=== PATIENT | male | born 1980 | race Two or more races ===

== ENCOUNTER 2019-08-15 04:18 | Inpatient (IN) | payer OTHER ==
[~2019-08-15] VITALS: Ht 190.5 cm; Wt 83.5 kg
--- NOTE | 2019-08-15 04:35 | NUR ---
[id number]. C/O VOMMITING X 2, ONE EPISODE W/ RED RED BLOOD. 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 TO ER BED 4 AWAITING MED EVAL
[2019-08-15] MEDS ORDERED: PANTOPRAZOLE 40 MG VIAL IV ONE (05:00)
[2019-08-15] MEDS ORDERED: IV NS 0.9% 1,000 ML BAG IV ONE ×2 (05:00→06:30)
[2019-08-15] MEDS ORDERED: ONDANSETRON HCL/PF 4 MG/2 ML VIAL IVP ONE (05:00)
[2019-08-15 05:15] LABS: APPEARANCE,URINE Clear (CLEAR); BILIRUBIN,URINE SMALL (NEGATIVE); BLOOD, URINE Trace-intact Ery/uL (NEGATIVE); COLOR,URINE Yellow (YELLOW); KETONES,URINE 80 (NEGATIVE); LEUKOCYTE ESTERASE ,URINE Negative (NEGATIVE); NITRITE, URINE Negative (NEGATIVE); PH,URINE 7.5 (5.0-8.0); PROTEIN,URINE Trace mg/dl (NEGATIVE); UGLUCOSE Negative (NEGATIVE)
[2019-08-15 05:18] LABS: CALCIUM, SERUM 8.7 mg/dL (8.5-10.1); CARBON DIOXIDE 20 mmol/L (21-32); CHLORIDE 106 mmol/L (98-107); CREATININE 0.9 mg/dL (0.6-1.3); GLUCOSE 128 mg/dL (74-106); POTASSIUM 3.7 mmol/L (3.5-5.1); SODIUM SERUM 140 mmol/L (136-145); UREA NITROGEN, BLOOD 14 mg/dL (7-18)
[2019-08-15 05:26] LABS: ABG OXYGEN SATURATION 89.6 % (92.0-98.5); ABG PCO2 19.5 mmHg (35.0-45.0); ABG PH 7.571 (7.350-7.450); AaDO2 123.6 mmHg; COHb 0.2 % (0.5-1.5); MetHb 0.4 % (0.0-1.5); O2Hb 89.1 % (94.0-97.0); SITE, ABG Right Radial; VENT MODE, BG NC 2L
[2019-08-15] MEDS ORDERED: IOHEXOL-350 100 ML VIAL IV ONE (05:28)
[2019-08-15] MEDS ORDERED: CT SWABBABLE VALVE TRANS SET 1 EA INFUS.SET MC ONE (05:29)
[2019-08-15] MEDS ORDERED: IV NS 0.9% 250 ML IV ONE (05:29)
--- NOTE | 2019-08-15 05:29 | NUR ---
lactic acid 2.4
[2019-08-15 05:31] LABS: ALANINE AMINOTRANSFERASE 35 U/L (12-78); ALBUMIN 3.6 g/dL (3.4-5.0); ALKALINE PHOSPHATASE 140 U/L (46-116); ASPARTATE AMINOTRANSFERASE 42 U/L (15-37); B-TYPE NATRIURETIC PEPTIDE 23 PG/ML (0-125); BILIRUBIN,DIRECT 0.5 mg/dL (0.0-0.2); BILIRUBIN,TOTAL 2.1 mg/dL (0.2-1.0); LIPASE 136 U/L (73-393); SERUM AMMONIA 35 umol/L (11-32); TOTAL PROTEIN, SERUM 7.5 g/dL (6.4-8.2)
[2019-08-15 05:39] LABS: BACTERIA,URINE Few /HPF (None Seen); MUCUS,URINE Few /LPF (None Seen); SQUAMOUS EPITHELIAL CELL,UR Few /HPF (None Seen)
[2019-08-15 05:43] LABS: D-DIMER 0.53 mg/L(FEU (0.17-0.50)
--- NOTE | 2019-08-15 05:49 | NUR ---
PT TAKEN TO RADIOLOGY
[2019-08-15 05:50] LABS: BASOPHILS % (AUTO) 0.3 % (0.0-2.0); EOSINOPHILS % (AUTO) 0.9 % (0.0-6.0); HEMATOCRIT 57 % (39-51); LYMPHOCYTES # (AUTO) 0.5 /CMM (0.8-4.8); LYMPHOCYTES % (AUTO) 7.6 % (20.0-44.0); MEAN CORPUSCULAR HGB CONC 34 g/dl (31.0-36.0); MEAN CORPUSCULAR VOLUME 103 fL (80-96); MONOCYTES # (AUTO) 0.3 /CMM (0.1-1.30); MONOCYTES % (AUTO) 4.6 % (2.0-12.0); NEUTROPHILS # (AUTO) 5.7 /CMM (1.8-8.9); NEUTROPHILS % (AUTO) 86.6 % (43.0-81.0); PLATELET COUNT (AUTO) 58 /CMM (150-450); RED BLOOD CELL COUNT(AUTO) 5.51 MIL/uL (4.5-6.0); WHITE BLOOD COUNT (AUTO) 6.6 K/uL (4.3-11.0)
[2019-08-15 05:52] LABS: HEMOGLOBIN 19.4 g/dL (13.5-17.5)
[2019-08-15 05:58] LABS: LYMPHOCYTES % (MANUAL) 4 % (16-48); MONOCYTES % (MANUAL) 3 % (0-11.0); NEUTROPHILS % (MANUAL) 93 (42-76)
--- NOTE | 2019-08-15 06:04 | NUR ---
CALLED SUP FOR [facility] BED
[2019-08-15] MEDS ORDERED: PIPERACILLIN /TAZOBACTAM 3.375 G in IV D5W 50 ML IV ONE (06:30)
[2019-08-15] MEDS ORDERED: PIPERACILLIN /TAZOBACTAM 3.375 G VIAL IV ONE (06:34)
--- NOTE | 2019-08-15 06:42 | NUR ---
CALLED IN REPORT TO [facility] CHARGE NURSE CHACORTA
--- NOTE | 2019-08-15 06:48 | NUR ---
PAGED DR. LANGLEY
[2019-08-15 08:00] VITALS: BP 100/66
--- NOTE | 2019-08-15 08:28 | NUR ---
PATIENT ACCEPTED BY [facility], DOWNGRADED TO TELE. PATIENT TRANSFERRED TO ROOM 116-2 VIA ACLS PROTOCOL. NO DISTRESS NOTED. AMBULATORY WITH STEADY GAIT.
[2019-08-15 08:52] VITALS: BP 100/66
--- NOTE | 2019-08-15 09:27 | NUR ---
[facility] RN Notes Received patient from emergency room. Initial admission assessment conducted. Patient is in bed comfortable and resting. VSS BP 100/66 HR 76 T-98.3 O2 96 RR18, NSR. Will continue to monitor for s/s of bleeding and any changes of condition. 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
[2019-08-15] MEDS ORDERED: HYDROCODONE/APAP 5/325MG 1 EACH TABLET PO PRN (10:30)
[2019-08-15] MEDS ORDERED: ONDANSETRON HCL/PF 4 MG/2 ML VIAL IVP PRN (10:30)
[2019-08-15] MEDS ORDERED: MORPHINE SULFATE INJ 2 MG/ML DISP.SYRIN IV PRN (10:30)
[2019-08-15] MEDS ORDERED: ZOLPIDEM TARTRATE 5 MG TABLET PO PRN (10:30)
[2019-08-15] MEDS ORDERED: ACETAMINOPHEN 325 MG TABLET PO PRN (10:30)
[2019-08-15] MEDS ORDERED: PANTOPRAZOLE 40 MG VIAL IV SCH (10:30)
[2019-08-15] MEDS ORDERED: MAGNESIUM HYDROXIDE 30 ML UDC PO PRN (10:30)
[2019-08-15] MEDS ORDERED: MAG HYDROX/AL HYDROX/SIMETH 30 ML UDC PO PRN (10:30)
--- NOTE | 2019-08-15 10:38 | NUR ---
[facility] RN Notes Per INVENTORY CONTROLLER rajani Chino to have ice chips. Will continue to monitor.
--- NOTE | 2019-08-15 10:54 | NUR ---
M[facility] RN Notes Patient just seen by respiratory therapy. ABG drawn off O2. Patient reconnected to nasal canula 2L. O2 Reassessed at 92%. Will continue to monitor for s/s of SOB and respiratory distress.
[2019-08-15 11:01] LABS: ABG BASE EXCESS -2.8 mmol/L; ABG PCO2 25.4 mmHg (35.0-45.0); ABG PH 7.476 (7.350-7.450); ABG PO2 52.9 mmHg (75.0-100.0); AaDO2 66.4 mmHg; COHb 0.5 % (0.5-1.5); MetHb 0.7 % (0.0-1.5); O2Hb 86.9 % (94.0-97.0); SITE, ABG Right Radial; VENT MODE, BG ROOM AIR (LAYING FLAT)
[2019-08-15] MEDS: IV D5/0.45 NACL 1,000 ML IV PRN (11:15)
[2019-08-15 12:00] VITALS: BP 103/59
[2019-08-15] MEDS ORDERED: PIPERACILLIN /TAZOBACTAM 3.375 G in IV D5W 50 ML IV SCH (12:00)
--- NOTE | 2019-08-15 12:00 | NUR ---
MART[facility] RN Notes Patient reconnected to 02 after assessing how patient tolerates room air, patient unable to have ambulating 02 done at this time due to low 02 saturation (87-90). Per MD order test to be done for O2 greater then 92. Respiratory therapy said OK to reconnect with 6L nasal canula. Patient placed in high fowlers position. Will continue to monitor for s/s of respiratory distress.
[2019-08-15] MEDS: PIPERACILLIN /TAZOBACTAM 3.375 G in IV D5W 100 ML IV SCH ×2 (12:59→22:24)
--- NOTE | 2019-08-15 13:49 | NUR ---
chrissie rn note per dr cristina bruner to place on 6l nc of o2, sat 95 %, will monitor
--- NOTE | 2019-08-15 13:49 | NUR ---
chrissie rn note .per rt and dr Paula ok to start on high flow o2 , now at 50% and fio2 50 sat 95% will monitor
--- NOTE | 2019-08-15 15:07 | NUR ---
[facility] RN Notes Spoke with MD Vasquez about dx GI bleed. ordered NPO and to consent patient. Will obtain consent for EGD. Patient procedure scheduled for 0608/16.
--- NOTE | 2019-08-15 15:37 | NUR ---
chrissie rn note consent for egd obtained
[2019-08-15 16:00] VITALS: BP 102/56
[2019-08-15] MEDS: PANTOPRAZOLE 40 MG VIAL IV SCH (16:36)
--- NOTE | 2019-08-15 17:20 | NUR ---
returned telephone equipment appraiser note ua collected as ordered
--- NOTE | 2019-08-15 18:19 | NUR ---
MEDICAL SERVICES MANAGER Notes - End of Shift Summary Patient is alert and oriented x4, Vital Signs Stable BP: 100/66, P.76, T-98.6, 02 92 92 on 6L NC, RR-18, No Complaint of Pain. Patient O2 ranged from 82-90 on RA throughout shift necessitating the need for 6L NC. Collaborated with RT. Patient Sat was 90-92 on nasal canula. No skin breakdown noted. Patient is NSR on tele monitor. IV access on left forearm running D5 1/2 NS @ 75mL/ Hr. Resp unlabored and even. Patient had 1 BM no complains of abdominal pain. No new additional NV. Patient is scheduled for procedure tomorrow AM with Dr. Vasquez for EGD. Patient is resting comfortably in bed. Will endorse care to oncoming RN.
--- NOTE | 2019-08-15 19:01 | NUR ---
RN OPENING NOTES: RECEIVED PATIENT IN BED A/O X4. NO SOB. NO COMPLAIN OF PAIN. FAMILY MEMBER AT THE BEDSIDE. PATIENT IS EATING ICE CHIPS. INSTRUCTED NPO POST MN. VERBALIZED UNDERSTANDING. CALL LIGHT WITHIN REACH. BED IN LOWEST AND LOCKED POSITION. NO VOMITTING NOTED.
--- NOTE | 2019-08-15 19:24 | NUR ---
bore mill operator for plastic Notes Patient requested food. MD Garcia called, gave verbal order stating okay to have clear liquids till MN. Care endorsed to Walter ABRAMS.
[2019-08-15 20:00] VITALS: BP 106/71
--- NOTE | 2019-08-15 20:47 | NUR ---
Met with patient and at bedside. Patient lives at home with and their 4 months old baby. He is ambulatory and independent with adl's. Has no DME or homehealth reported. Will assess for o2 needs prior dc. Janel will provide ride when discharge. Addendum: 08/15/19 at 2046 by MAULIK CONNORS RN Amended: Links added.
[2019-08-16] MEDS: IV D5/0.45 NACL 1,000 ML IV PRN (02:57)
[2019-08-16 04:00] VITALS: BP 106/71
[2019-08-16 04:15] VITALS: BP 81/33
--- NOTE | 2019-08-16 04:16 | NUR ---
BP= 81/33 PULSE= 77. CN LIN MADE AWARE, AND INFORMED KORIN GROSS, WAITING FOR THE RESPONSE.
[2019-08-16 04:30] VITALS: BP 95/50
--- NOTE | 2019-08-16 04:52 | NUR ---
BP RECHECKED AT 0430- 95/50 HR-75, INFORMED DR LANGLEY ALSO, MADELINE CEBALLOS AWARE. WAITING FOR THE RESPONSE OF .
[2019-08-16] MEDS: PIPERACILLIN /TAZOBACTAM 3.375 G in IV D5W 100 ML IV SCH ×2 (05:05→13:04)
[2019-08-16] MEDS ORDERED: IV NS 0.9% 250 ML IV ONE (05:30)
--- NOTE | 2019-08-16 05:32 | NUR ---
NS 250 ML BOLUS GIVEN.
[2019-08-16] MEDS ORDERED: FENTANYL PF 100MCG/2ML AMPUL ONE (05:44)
[2019-08-16] MEDS ORDERED: ANESTHESIA TRAY IN PYXIS 1 EA TRAY MC ONE (05:49)
--- NOTE | 2019-08-16 05:53 | NUR ---
PATIENT IS BEING PICKED UP FOR EGD.
--- NOTE | 2019-08-16 06:52 | NUR ---
PATIENT CAME BACK FROM EGD WITH ORDERS, WILL ENDORSE TO THE NEXT SHIFT RN. PATIENT IS AWAKE A/O X4.
[2019-08-16 06:58] VITALS: BP 97/66
--- NOTE | 2019-08-16 07:45 | NUR ---
RN OPENING NOTES RECEIVED PATIENT IN BED, A/O X4. VERBALLY RESPONSIVE AND ABLE TO MAKE NEEDS KNOWN. DENIES ANY PAIN AT THE MOMENT. ON NASAL CANNULA 2L, SATURATING WELL. IV ACCESS ON L AC #20 INTACT, PATENT AND FLUSHED WELL. NO SIGNS OF INFILTRATION NOTED. ON CLEAR LIQUIDS. POSITION BED ON LOW AND LOCKED. CALL LIGHT WITHIN REACH FOR EASY ACCESS. WILL CONTINUE TO MONITOR.
[2019-08-16 08:00] VITALS: BP 108/64
[2019-08-16] MEDS ORDERED: OCTREOTIDE 50 MCG in IV NS 0.9% 50 ML IV ONE (08:00)
[2019-08-16] MEDS ORDERED: OCTREOTIDE 1,250 MCG in IV NS 0.9% 247.5 ML IV PRN (08:00)
[2019-08-16 08:04] LABS: ALBUMIN 2.8 g/dL (3.4-5.0); BILIRUBIN,TOTAL 1.9 mg/dL (0.2-1.0); CALCIUM, SERUM 7.7 mg/dL (8.5-10.1); CREATININE 0.8 mg/dL (0.6-1.3); MAGNESIUM 1.8 mg/dL (1.8-2.4); PHOSPHORUS 2.9 mg/dL (2.5-4.9); POTASSIUM 3.1 mmol/L (3.5-5.1); TOTAL PROTEIN, SERUM 6.2 g/dL (6.4-8.2)
[2019-08-16 08:12] LABS: THYROID STIMULATING HORMONE 1.402 uIU/mL (0.358-3.74)
[2019-08-16 08:23] LABS: BASOPHILS % (AUTO) 0.4 % (0.0-2.0); EOSINOPHILS % (AUTO) 3.6 % (0.0-6.0); HEMATOCRIT 50 % (39-51); HEMOGLOBIN 16.6 g/dL (13.5-17.5); LYMPHOCYTES # (AUTO) 0.6 /CMM (0.8-4.8); LYMPHOCYTES % (AUTO) 25.3 % (20.0-44.0); MEAN CORPUSCULAR HGB CONC 33 g/dl (31.0-36.0); MEAN CORPUSCULAR VOLUME 104 fL (80-96); MONOCYTES # (AUTO) 0.2 /CMM (0.1-1.30); MONOCYTES % (AUTO) 9.6 % (2.0-12.0); NEUTROPHILS # (AUTO) 1.6 /CMM (1.8-8.9); NEUTROPHILS % (AUTO) 61.1 % (43.0-81.0); RED BLOOD CELL COUNT(AUTO) 4.79 MIL/uL (4.5-6.0); WHITE BLOOD COUNT (AUTO) 2.5 K/uL (4.3-11.0)
[2019-08-16 08:38] LABS: PLATELET COUNT (AUTO) 40 /CMM (150-450)
--- NOTE | 2019-08-16 09:15 | NUR ---
RN MS NOTES PAGE DRY MAN SOLOMON TOTH REGARDING CRITICAL LAB RESULT OF PLATELET 40
[2019-08-16] MEDS: PANTOPRAZOLE 40 MG VIAL IV SCH ×2 (09:29→17:28)
--- NOTE | 2019-08-16 09:35 | NUR ---
RN MS NOTES SPOKE AND INFORMED VALENTINE TOTH REGARDING THE CRITICAL LAB OF PLATELET 40, NO NEW ORDER FROM HIM. PER PARTS WASHER ALYSSA, HE'LL COME BY TODAY AND SEE THE PATIENT.
[2019-08-16 10:18] LABS: BAND % (MANUAL) 2 % (0.0-5.0); EOSINOPHILS % (MANUAL) 1 % (0-4); LYMPHOCYTES % (MANUAL) 26 % (16-48); MONOCYTES % (MANUAL) 8 % (0-11.0); NEUTROPHILS % (MANUAL) 63 (42-76)
--- NOTE | 2019-08-16 11:47 | NUR ---
RN NOTES STARTED A NEW IV LINE ON L HAND #22. INTACT, PATENT AND FLUSHED WELL.
[2019-08-16] MEDS: POTASSIUM CHLORIDE 20 MEQ TAB.PRT.SR PO SCH ×2 (12:27→13:13)
--- NOTE | 2019-08-16 15:10 | NUR ---
RN NOTES PATIENT WAS ABLE TO TOLERATE ROOM AIR. LOWEST SATURATION SAT IS 91.
[2019-08-16 16:00] VITALS: BP_SYST 108; BP_SYST 97; BP_DIAS 64; BP_DIAS 67
[2019-08-16] MEDS ORDERED: MEROPENEM 1 G in IV NS 0.9% 100 ML IV ONE (17:00)
[2019-08-16] MEDS ORDERED: LACTULOSE 10 G/15 ML UDC (PYXIS) PO PRN (19:30)
--- NOTE | 2019-08-16 19:30 | NUR ---
MS RN OPENING NOTE RECEIVED PATIENT IN BED. A/OX 4. ON OXYGEN 2L/MIN VIA NASAL CANNULA. RESPIRATIONS ARE EVEN AND UNLABORED. NO S/S SOB NOTED. DENIES PAIN AT THIS TIME. IN NO APPARENT DISTRESS. IV ACCESS IN LFA RUNNING D51/2NS@75ML/HR. LEFT HAND RUNNING SONDOSTATIN @25MCG/HR. BED IS LOW AND LOCKED, HOB ELEVATED IN HIGH FOWLERS, SIDE RIALS UP X2, NICKI LIGHT WITHIN REACH. FAMILY AT BEDSIDE. WILL CONTINUE TO MONITOR.
--- NOTE | 2019-08-16 19:46 | NUR ---
RN CLOSING NOTES PT IN BED, IN NO ACUTE DISTRESS NOTED. BOTH L AC AND L HAND IV ACCESS INTACT, NO SIGNS OF INFILTRATION. DENIES ANY PAIN AT THE MOMENT. ALL NEEDS MET. ENDORSED TO PM RN FOR CONTINUITY OF CARE.
[2019-08-17] VITALS: BP 100/74
[2019-08-17] MEDS: IV D5/0.45 NACL 1,000 ML IV PRN (01:57)
[2019-08-17] MEDS: MEROPENEM 1 G in IV NS 0.9% 100 ML IV SCH ×2 (01:57→10:44)
--- NOTE | 2019-08-17 06:20 | NUR ---
MS RN CLOSING NOTE PATIENT IN BED. A/OX 4. ON OXYGEN 5L/MIN VIA NASAL CANNULA. RESPIRATIONS ARE EVEN AND UNLABORED. NO SOB NOTED. NO C/O PAIN THROUGHOUT SHIFT.NO DISTRESS NOTED. IV ACCESS MAINTAINED IN LFA RUNNING D51/2NS@75ML/HR. LEFT HAND RUNNING SONDOSTATIN @25MCG/HR. BED IS LOW AND LOCKED, HOB FLAT, SIDE RIALS UP X2, CALL LIGHT WITHIN REACH. WILL ENDORSE TO NEXT SHIFT.
[2019-08-17 07:02] LABS: BASOPHILS % (AUTO) 0.4 % (0.0-2.0); EOSINOPHILS % (AUTO) 3.1 % (0.0-6.0); HEMATOCRIT 49 % (39-51); HEMOGLOBIN 16.5 g/dL (13.5-17.5); LYMPHOCYTES # (AUTO) 0.8 /CMM (0.8-4.8); LYMPHOCYTES % (AUTO) 26.4 % (20.0-44.0); MEAN CORPUSCULAR HGB CONC 33 g/dl (31.0-36.0); MEAN CORPUSCULAR VOLUME 104 fL (80-96); MONOCYTES # (AUTO) 0.3 /CMM (0.1-1.30); MONOCYTES % (AUTO) 10.6 % (2.0-12.0); NEUTROPHILS # (AUTO) 1.8 /CMM (1.8-8.9); NEUTROPHILS % (AUTO) 59.5 % (43.0-81.0); RED BLOOD CELL COUNT(AUTO) 4.72 MIL/uL (4.5-6.0)
[2019-08-17 07:12] LABS: PLATELET COUNT (AUTO) 37 /CMM (150-450)
[2019-08-17 07:25] LABS: THYROID STIMULATING HORMONE 0.306 uIU/mL (0.358-3.74)
[2019-08-17 07:28] LABS: CALCIUM, SERUM 7.7 mg/dL (8.5-10.1); CREATININE 0.9 mg/dL (0.6-1.3)
--- NOTE | 2019-08-17 07:53 | NUR ---
RN OPENING NOTES RECEIVED PATIENT IN BED, AWAKE. A/O X4 . VERBALLY RESPONSIVE. DENIES PAIN AT THE MOMENT. ON NASAL CANNULA 3L , TOLERATING WELL. NO SOB NOTED. IV ACCESS ON L F ARM #20 WITH ON GOING D5 1/2 NS @75ML/HR WITH REMAINING 750 ML ON THE BAG. 2ND IV ACCESS ON L HAND #22 RUNNING SANDOSTATIN @25MCG/HR. BOTH IV ACCESS INTACT, NO SIGNS OF INFILTRATION. DISCUSSED PLAN OF CARE WITH PATIENT FOR TODAY. VERBALIZED UNDERSTANDING. BED ON LOW POSITION AND LOCKED. CALL LIGHT WITHIN REACH. WILL CONTINUE TO MONITOR
[2019-08-17 08:00] VITALS: BP 103/64
--- NOTE | 2019-08-17 08:00 | NUR ---
RN NOTES RECEIVED A CALL FROM LAB CRITICAL RESULT FOR PLATELET OF 37 NO BLEEDING NOTED. NOTIFIED DR ROLLINS AND VALENTINE SHAH. NO NEW ORDER FROM PROVIDERS.
[2019-08-17] MEDS: PANTOPRAZOLE 40 MG VIAL IV SCH (08:42)
[2019-08-17] MEDS ORDERED: FOLIC ACID 1 MG TABLET PO SCH (09:00)
[2019-08-17] MEDS ORDERED: PANT40TA2 PO (11:30)
[2019-08-17] MEDS ORDERED: Folic Acid PO (11:30)
[2019-08-17 12:48] LABS: EOSINOPHILS % (MANUAL) 4 % (0-4); LYMPHOCYTES % (MANUAL) 28 % (16-48); MONOCYTES % (MANUAL) 5 % (0-11.0); NEUTROPHILS % (MANUAL) 63 (42-76)
--- NOTE | 2019-08-17 13:40 | NUR ---
OCCUPATIONAL HEALTH TECHNICIAN NOTES PATIENT IN BED, MEDICALLY STABLE. IN NO ACUTE DISTRESS. AT BEDSIDE. DISCUSSED DISCHARGE PLAN AND PROVIDED INSTRUCTIONS. WRITTEN PRESCRIPTION GIVEN INCLUDING THE EXIT DISCHARGE PACKET. IV ACCESS REMOVED. BELONGINGS LIST SIGNED AND ALL VALUABLES GIVEN.
== END 2019-08-17 13:45 | disposition home or self-care (01) | DRG 432 ==
LOC: ER 04:18 → TELE-TD 06:43 → MEDSG1 16:44 → TELE1 16:55 → MEDSG1 08-16 08:25
PROVIDERS: ADMIT Nurse Practitioner Acute Care; ATTEND Nurse Practitioner Acute Care
PROC: 06L38CZ Occlusion of Esophageal Vein with Extraluminal Device, Via Natural or Artificial Opening Endoscopic (ICD-10-PCS; principal; 2019-08-16)
DX: K70.30 Alcoholic cirrhosis of liver without ascites (principal); J96.01 Acute respiratory failure with hypoxia; I85.11 Secondary esophageal varices with bleeding; K76.6 Portal hypertension; J84.9 Interstitial pulmonary disease, unspecified; E87.2 Acidosis; K92.2 Gastrointestinal hemorrhage, unspecified; D61.818 Other pancytopenia; D69.6 Thrombocytopenia, unspecified; I10 Essential (primary) hypertension; K31.89 Other diseases of stomach and duodenum; K72.90 Hepatic failure, unspecified without coma; Z87.891 Personal history of nicotine dependence; R16.1 Splenomegaly, not elsewhere classified; R68.3 Clubbing of fingers; D75.1 Secondary polycythemia; Z72.89 Other problems related to lifestyle
CPT/HCPCS: 36415; 36600; 71045-TC; 80048-TC; 80053-TC; 80061-TC; 80076-TC; 81000-TC; 82140-TC; 82803-TC; 82962-TC; 83605-TC; 83690-TC; 83735-TC; 83880; 84100-TC; 84439-TC; 84443-TC; 84481; 84484-TC; 85025-TC; 85378-TC; 85730-TC; 86706; 86803; 86850-TC; 87040-TC; 87081-TC; 87086-TC; 87340; 87806; 93307-TC; A4216; C9113; G0378; J2185; J2354; J2543; J3010; J3490; J7030; J7042; J7050; J7060; Q9967